=== PATIENT | male | born 1975 | race Caucasian/White ===

== ENCOUNTER 2017-09-25 15:26 | Emergency (ER) | payer BC ==
[~2017-09-25] VITALS: Ht 177.8 cm; Wt 120.2 kg
[~2017-09-25 15:26] MED LIST: FLOMAX0.4 MG PO; VICODIN 5-5001 EACH PO
[2017-09-25] MEDS ORDERED: PERCOCET 5-3251 EACH PO (18:38)
[2017-09-25] MEDS ORDERED: FLOMAX0.4 MG PO (18:38)
[2017-09-25] MEDS ORDERED: ZOFRAN ODT4 MG PO (18:38)
== END 2017-09-25 19:20 | disposition home or self-care (01) ==
LOC: ED 15:26
DX: N13.2 Hydronephrosis with renal and ureteral calculous obstruction (principal); Z88.5 Allergy status to narcotic agent
CPT/HCPCS: 74176; 80053; 81001; 85025; 96361; 96374; 96375; 96376; 99284; J1885; J2270; J2405; J7030